=== PATIENT | female | born 1960 | race Caucasian/White ===

== ENCOUNTER 2016-10-01 10:02 | Emergency (ER) | payer BC ==
[~2016-10-01] VITALS: Ht 162.6 cm; Wt 79.0 kg
[2016-10-01 10:08] VITALS: BP 142/90; PULSE 85; RESP 16; TEMP 98; O2SAT 97
[2016-10-01 10:25] VITALS: BP 157/90; PULSE 77; RESP 16; O2SAT 99
[2016-10-01] MEDS ORDERED: AMLO5TAB2 PO (10:25)
[2016-10-01] MEDS ORDERED: LEVO100T5 PO (10:25)
[2016-10-01] MEDS ORDERED: METO50TA PO (10:25)
[2016-10-01] MEDS ORDERED: SODIUM CHLORIDE 0.9% FLUSH 10 ML FLUSH IVF PRN (10:45)
[2016-10-01] MEDS ORDERED: diphenhydrAMINE HCL 50 MG/ML VIAL IV PUSH ONE (10:45)
[2016-10-01] MEDS ORDERED: SODIUM CHLOR 0.9% 1000 ML INJ 1,000 ML IV SCH (10:45)
[2016-10-01] MEDS ORDERED: PROCHLORPERAZINE INJ 10 MG/2 ML VIAL IV PUSH ONE (10:45)
[2016-10-01 10:58] VITALS: RESP 16; O2SAT 99
[2016-10-01 11:00] LABS: AUTOMATED NEUTROPHIL # 5.5 TH/MM3 (1.8-7.7); BASOPHIL # 0.1 TH/MM3 (0-0.2); BASOPHIL % 1.1 % (0.0-2.0); EOSINOPHIL # 0.3 TH/MM3 (0-0.4); EOSINOPHIL % 3.5 % (0.0-4.0); HEMATOCRIT 43.2 % (35.0-46.0); HEMO FLAGS DIFF FINAL; LYMPH % 22.8 % (9.0-44.0); LYMPHOCYTE # 1.9 TH/MM3 (1.0-4.8); MEAN CELL VOLUME 88.8 FL (80.0-100.0); MEAN CORPUSCULAR HEMOGLOBIN 29.7 PG (27.0-34.0); MEAN CORPUSCULAR HGB CONC 33.4 % (32.0-36.0); MONO % 5.6 % (0.0-8.0); PLATELET COUNT 261 TH/MM3 (150-450); RED BLOOD COUNT 4.86 MIL/MM3 (4.00-5.30); RED CELL DISTRIBUTION WIDTH 12.4 % (11.6-17.2); WHITE BLOOD COUNT 8.3 TH/MM3 (4.0-11.0)
[2016-10-01 11:15] LABS: CHLORIDE 109 MEQ/L (98-107); SODIUM (NA) 146 MEQ/L (136-145)
[2016-10-01 11:18] LABS: ANION GAP 6 MEQ/L (5-15)
[2016-10-01 11:19] LABS: BLOOD UREA NITROGEN 14 MG/DL (7-18)
[2016-10-01 11:21] LABS: ALT (GPT) 23 U/L (10-53); AST (GOT) 11 U/L (15-37)
[2016-10-01 11:22] LABS: GLOMERULAR FILTRATION RATE 71 ML/MIN (>89)
[2016-10-01 11:23] LABS: TOTAL BILIRUBIN ADULT 0.3 MG/DL (0.2-1.0)
[2016-10-01 11:24] LABS: ALKALINE PHOSPHATASE 118 U/L (45-117)
[2016-10-01 11:35] VITALS: BP 151/82; PULSE 62; RESP 16; O2SAT 95
--- NOTE | 2016-10-01 11:52 | RADHPO ---
EXAM DATE/TIME: 10/01/2016 10:55 [facility] COMPARISON: No previous studies available for comparison. INDICATIONS : Patient with altered mental status, numbness left arm and leg . RADIATION DOSE: 64.66 CTDIvol (mGy) MEDICAL HISTORY : Hypertension. Cardiovascular disease SURGICAL HISTORY : None. ENCOUNTER: Initial ACUITY: 1 day PAIN SCALE: 3/10 LOCATION: Bilateral cranial head pressure TECHNIQUE: Multiple contiguous axial images were obtained of the head. Using automated exposure control and adj ustment of the mA and/or kV according to patient size, radiation dose was kept as low as reasonably a chievable to obtain optimal diagnostic quality images. FINDINGS: CEREBRUM: The ventricles are normal for age. No evidence of midline shift, mass lesion, hemorrhage or acute in farction. No extra-axial fluid collections are seen. POSTERIOR FOSSA: The cerebellum and brainstem are intact. The 4th ventricle is midline. The cerebellopontine angle i s unremarkable. EXTRACRANIAL: The visualized portion of the orbits is intact. SKULL: The calvaria is intact. No evidence of skull fracture. CONCLUSION: Normal examination. Jd Sanford MD on October 01, 2016 at 11:49 Board Certified Radiologist. This report was verified electronically.
--- NOTE | 2016-10-01 12:10 | PD ---
HPI Chief Complaint: Numbness/Tingling Time Seen by Provider: 10:16 Travel History International Travel<30 days: No Contact w/Intl Traveler<30days: No Traveled to known affect area: No History of Present Illness HPI Is a 55-year-old woman who presents to the emergency department complaining of numbness and tingling on her left side. She has been under stress recently. She's been more tired. She states about 3-4 days ago she was especially tired. Patient started noticing that she was walking funny. She'll little bit discomfort in the left hip. Following that she noticed that the reason she was walking funny to her left leg and arm were numb. She states that falling that she knows that her left face was numb as well. Symptoms are more in the toes and fingers, as well as in the left side the face. 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 The symptoms lasted a couple days. She's had intermittent migraines since that she describes as chest pressure like sensations in her head it's uncomfortable. States this all started in the past 5 years or so since she started getting oral surgery. She is not really appreciated any weakness. No headache now. She does feel like she is a little loss of balance. History Past Medical History Narrative Medical Hypertension Hypothyroidism History of basilar tip aneurysm Tobacco use Tetanus Vaccination: > 5 Years Influenza Vaccination: No Social History Alcohol Use: Yes (RARE) Tobacco Use: Yes (1 PPD) Allergies-Medications (Allergen,Severity, Reaction): Coded Allergies: No Known Allergies (Unverified , 10/01/16) Reported Meds & Prescriptions Reported Meds & Active Scripts Active Reported Metoprolol Tartrate 50 Mg Tab 50 Mg PO BID Amlodipine (Amlodipine Besylate) 5 Mg Tab 5 Mg PO DAILY Levothyroxine (Levothyroxine Sodium) 100 Mcg Tab 100 Mcg PO DAILY Review of Systems Except as stated in HPI: all other systems reviewed are Neg Physical Exam Narrative GENERAL: Well-appearing 55-year-old woman, no acute distress. SKIN: Focused skin assessment warm/dry. HEAD: Atraumatic. Normocephalic. EYES: Pupils equal and round. No scleral icterus. No injection or drainage. ENT: No nasal bleeding or discharge. Mucous membranes pink and moist. NECK: Trachea midline. No JVD. CARDIOVASCULAR: Regular rate and rhythm. No murmur appreciated. RESPIRATORY: No accessory muscle use. Clear to auscultation. Breath sounds equal bilaterally. GASTROINTESTINAL: Abdomen soft, non-tender, nondistended. Hepatic and splenic margins not palpable. MUSCULOSKELETAL: No obvious deformities. No clubbing. No cyanosis. No edema. NEUROLOGICAL: Awake and alert. Cranial nerves II through XII are intact. Strength is full and equal in the upper or lower extremity proximal and distal muscle groups. She has some subjective decrease in sensation in select areas on her lateral hand, her leg and lateral foot, and the left side of her face. There is no sensory changes on the trunk. There is no sensory changes on the proximal extremities. Otherwise unremarkable exam. PSYCHIATRIC: Appropriate mood and affect; insight and judgment normal. Data Data Last Documented VS Vital Signs Date Time Temp Pulse Resp B/P Pulse Ox O2 Delivery O2 Flow Rate FiO2 10/01/16 11:35 62 16 151/82 95 Room Air 10/01/16 10:08 98.0 Orders Electrocardiogram (10/01/16 10:41) Complete Blood Count With Diff (10/01/16 10:41) Comprehensive Metabolic Panel (10/01/16 10:41) Ct Brain W/O Iv Contrast(Rout) (10/01/16 10:41) Blood Glucose (10/01/16 10:41) Ecg Monitoring (10/01/16 10:41) Iv Access Insert/Monitor (10/01/16 10:41) Oximetry (10/01/16 10:41) Sodium Chloride 0.9% Flush (Ns Flush) (10/01/16 10:45) Prochlorperazine Inj (Compazine Inj) (10/01/16 10:45) Diphenhydramine Inj (Benadryl Inj) (10/01/16 10:45) Sodium Chlor 0.9% 1000 Ml Inj (Ns 1000 M (10/01/16 10:45) Labs Laboratory Tests Test 10/01/16 10:45 White Blood Count 8.3 TH/MM3 Red Blood Count 4.86 MIL/MM3 Hemoglobin 14.4 GM/DL Hematocrit 43.2 % Mean Corpuscular Volume 88.8 FL Mean Corpuscular Hemoglobin 29.7 PG Mean Corpuscular Hemoglobin 33.4 % Concent Red Cell Distribution Width 12.4 % Platelet Count 261 TH/MM3 Mean Platelet Volume 9.0 FL Neutrophils (%) (Auto) 67.0 % Lymphocytes (%) (Auto) 22.8 % Monocytes (%) (Auto) 5.6 % Eosinophils (%) (Auto) 3.5 % Basophils (%) (Auto) 1.1 % Neutrophils # (Auto) 5.5 TH/MM3 Lymphocytes # (Auto) 1.9 TH/MM3 Monocytes # (Auto) 0.5 TH/MM3 Eosinophils # (Auto) 0.3 TH/MM3 Basophils # (Auto) 0.1 TH/MM3 CBC Comment DIFF FINAL Differential Comment Sodium Level 146 MEQ/L Potassium Level 4.0 MEQ/L Chloride Level 109 MEQ/L Carbon Dioxide Level 31.0 MEQ/L Anion Gap 6 MEQ/L Blood Urea Nitrogen 14 MG/DL Creatinine 0.83 MG/DL Estimat Glomerular Filtration 71 ML/MIN Rate Random Glucose 110 MG/DL Calcium Level 8.6 MG/DL Total Bilirubin 0.3 MG/DL Aspartate Amino Transf 11 U/L (AST/SGOT) Alanine Aminotransferase 23 U/L (ALT/SGPT) Alkaline Phosphatase 118 U/L Total Protein 7.5 GM/DL Albumin 3.7 GM/DL [facility] Medical Decision Making Medical Screen Exam Complete: Yes Emergency Medical Condition: Yes Interpretation(s) LABS: CBC is unremarkable. CMP is generally unremarkable. Head CT: Normal. Differential Diagnosis Complex migraine, paresthesias, demyelinating disease or a mass, malignancy, other Narrative Course Medical decision making 55-year-old woman presents emergency Department numbness tingling in her left arm left leg and left face. Etiology is unclear. She's had hemiplegic migraines complex migraines in the past. Is been ongoing for couple days however. We'll give her migraine cocktail. We'll check a CT had some basic labs. I spoke with the patient's primary physician, Dr. Christianson, who will follow -up on the results of an outpatient MRI. He is in [place] and she is returning home in about a week or 2, we will get the outpatient MRI here. Diagnosis Primary Impression: Left sided numbness Additional Instructions: Obtain outpatient MRI as instructed. Follow-up with your primary doctor says return home. Return to the emergency department for any worsening numbness, any weakness, or any other new or worsening symptoms. Med/Other Pt SpecificInfo: Prescription(s) given Disposition: 01 DISCHARGE HOME Condition: Stable Waylon Galicia MD October 01, 2016 12:10
--- NOTE | 2016-10-02 18:49 | EKG ---
Date Performed: 10/01/2016 Time Performed: 10:50:24 PTAGE: 55 years EKG: Sinus rhythm Possible anteroseptal infarct - age undetermined Abnormal ECG NO PREVIOUS TRACING DOCTOR: Nacho Dumas Interpretating Date/Time 10/02/2016 18:44:22
== END 2016-10-01 12:31 | disposition home or self-care (01) ==
LOC: PHED 10:02
DX: R20.0 Anesthesia of skin (principal); R94.31 Abnormal electrocardiogram [ECG] [EKG]; I10 Essential (primary) hypertension; E03.9 Hypothyroidism, unspecified; F17.210 Nicotine dependence, cigarettes, uncomplicated
CPT/HCPCS: 70450; 80053; 85025; 93005; 96361; 96374; 96375; 99284; J0780; J1200; J7030